=== PATIENT | male | born 1990 | race African-American/Black ===

== ENCOUNTER 2017-03-13 16:56 | Emergency (ER) | payer OTHER ==
[~2017-03-13] VITALS: Ht 177.8 cm; Wt 79.4 kg
[2017-03-13 16:59] VITALS: BP 146/86
== END 2017-03-13 20:41 | disposition left against medical advice (07) ==
LOC: ER 17:04
DX: M79.601 Pain in right arm (principal); Z53.21 Procedure and treatment not carried out due to patient leaving prior to being seen by health care provider